=== PATIENT | female | born 1970 | race African-American/Black ===

== ENCOUNTER 2016-11-29 17:31 | Emergency (ER) | payer MEDICARE, OTHER ==
[2016-11-29 20:08] LABS: BASOPHIL 0.1 % (0-2); EOSINOPHIL 0.1 % (0-5); HCT 38.4 % (37.0-47.0); HGB 12.9 g/dl (12.5-16.0); MCH 29.5 pg (25.0-31.0); MCHC 33.6 g/dL (32.0-36.0); MCV 87.7 fL (78.0-100.0); MONOCYTE 7.2 % (0-12); MPV 11.1 fL (6.0-9.5); NEUTROPHIL 73.6 % (41-80); PLT 193 K/uL (150-400); RBC 4.38 M/uL (4.20-5.40); RDW 15.1 % (11.5-14.0); WBC 10.4 K/uL (4.0-10.5)
[2016-11-29 20:24] LABS: ALBUMIN 3.1 g/dL (3.5-5.0); BILIRUBIN - TOTAL 0.2 mg/dL (0.1-1.0); CREATININE 0.4 mg/dL (0.5-1.0); GLOBULIN (CALCULATION) 3.1 g/dL (2.2-4.2); POTASSIUM 3.7 mmol/L (3.5-5.1); TOTAL PROTEIN 6.2 g/dL (6.4-8.3)
[2016-11-29 20:24] LABS: BILIRUBIN NEGATIVE (NEGATIVE); BLOOD NEGATIVE Ery/uL (NEGATIVE); CLARITY HAZY (CLEAR); COLOR YELLOW (YELLOW); GLUCOSE (U) NORMAL (NORMAL); KETONE (U) NEGATIVE (NEGATIVE); LEUKOCYTES 3+ Leu/uL (NEGATIVE); NITRITE POSITIVE (NEGATIVE); PROTEIN NEGATIVE (NEGATIVE); UROBILINOGEN 0.2 mg/dL (0.2-1.0); pH 7.5 (5.0-9.0)
[2016-11-29 20:30] LABS: BACTERIA 2+
== END 2016-11-29 22:13 | disposition home or self-care (01) ==
LOC: FER 17:31
PROVIDERS: Nurse Practitioner Family
DX: N39.0 Urinary tract infection, site not specified (principal); K59.00 Constipation, unspecified; Z88.0 Allergy status to penicillin; Z88.2 Allergy status to sulfonamides
CPT/HCPCS: 36415; 74022; 80053; 81001; 82150; 83690; 85025; 87088